=== PATIENT | female | born 1980 | race African-American/Black ===

== ENCOUNTER 2023-12-07 05:30 | Inpatient (IN) | payer OTHER, SELFPAY ==
[2023-12-07] VITALS (11 sets, daily range): BP systolic 105–144; BP diastolic 64–93; BMI 33.1
[2023-12-07 02:28] LABS: % Basophils 0.1 % (0-2); % Eosinophils 0.8 % (0-6); % Immature Granulocytes 0.3 % (0-0.5); % Lymphocytes 20.5 % (20.5-51.1); % Monocytes 3.9 % (1.7-9.3); % Neutrophils 74.4 % (42.2-75.2); Absolute Eosinophils 0.1 10^3/uL (0-0.7); Absolute Lymphocytes 1.6 10^3/uL (1.2-3.4); Absolute Monocytes 0.3 10^3/uL (0.1-0.6); Hematocrit 35.5 % (37.0-47.0); Hemoglobin 11.8 g/dL (12.0-16.0); Mean Corp Hgb Conc. 33.2 g/dL (33.0-37.0); Mean Corpuscular Hgb 29.6 pg (27.0-31.0); Nucleated Red Blood Cells % 0 %; Platelet Count 214 10^3/uL (130-400); Red Blood Cell Count 3.99 10^6/uL (4.20-5.40); Red Cell Dist. Width 13.2 % (11.5-14.5)
[2023-12-07] MEDS: ZOFRAN 4 MG IV (02:29)
[2023-12-07] MEDS: TYLENOL 650 MG PO ×4 (02:30→20:37)
[2023-12-07] MEDS: MORPHINE SULFATE 4 MG IV (02:30)
[2023-12-07 02:41] LABS: Lactic Acid 4.2 mmol/L (0.7-2.0)
[2023-12-07 02:47] LABS: ALT (SGPT) 22 U/L (0-35); AST (SGOT) 28 U/L (14-36); Albumin 4.2 g/dl (3.5-5.0); Alkaline Phosphatase 71 U/L (38-126); Blood Urea Nitrogen 11 mg/dl (7-17); Calcium 9.4 mg/dl (8.4-10.2); Carbon Dioxide 27 mmol/L (22-30); Chloride 100 mmol/L (98-107); Glucose 96 mg/dl (70-99); Sodium 137 mmol/L (135-145); Total Bilirubin 0.7 mg/dl (0.2-1.3); eGFR > 60.00
--- NOTE | 2023-12-07 02:50 | ED.GENMED ---
History of Present Illness
General
Chief Complaint: Abdominal Symptoms
Source: patient
Exam Limitations: none
Time Seen by Provider: 12/07/23 02:41
Nursing documentation reviewed up to this point in time: agreed with
History of Present Illness
History of Present Illness:
43-year-old female presents with severe abdominal pain with nausea, chills and generalized pain. Patient is being treated at [facility] for metastatic breast cancer. She reports that this cancer is spread to her bones. Patient denies
any other medical problems. Reports no other complaints at this time.
Vital signs are stable. Patient not hypoxic
Nursing note reviewed. I agree with nursing documentation up to this point in time.
Home Meds and allergies reviewed.
NUMBER AND COMPLEXITY OF PROBLEMS ADDRESSED AT THE ENCOUNTER
� Chronic conditions affecting care: Metastatic breast cancer
� Acute Exacerbation and/or Progression of Chronic Illness:
� Differential Diagnosis includes: Small bowel obstruction, metastases to the spine, ileus
AMOUNT AND/OR COMPLEXITY OF DATA TO BE REVIEWED AND ANALYZED
I performed an independent evaluation of the following and my interpretation is:
EKG:
CT:
X-rays:
Ultrasound:
Laboratory Studies:
Other:
Review of other/old records: No old records in the charting.
Clinical information was obtained by an independent historian:
Prescriptions/Medications Considered but not given:
Further testing considered but not performed:
RISK OF COMPLICATIONS AND/OR MORBIDITY OR MORTALITY OF PATIENT MANAGEMENT
Social determinants of health affecting care: Good Social Support
Discussion with other providers:
Escalation of care including admission/observation vs risk of discharge considered:
CRITICAL CARE NOTE:
Total Time (exclusive of procedures):
Update:
Phy Exam
General Physical Exam
General Presentation: moderate distress
General Skin: warm and dry
General Habitus: normal
General Mental: anxious and tearful
General Hydration: appears well hydrated
ENT Exam
ENT Exam: EOMI, pharynx normal, neck supple and normocephalic
Eye Exam
Eye Exam: PERRL, cornea clear and conjunctiva normal
Cardiovascular Exam
Cardiovascular Exam: regular rate/rhythm, no edema, no murmur and normal peripheral pulses
Pulmonary Exam
Pulmonary Exam: lungs clear, no respiratory distress, no rales, no crackles, no rhonchi, no stridor, no wheezing and no cough
Gastrointestinal Exam
Gastrointestinal Exam: soft, no organomegaly, no pulsatile mass, abnormal bowel sounds, distended and guarding
Neurological Exam
Neurological Exam: alert, oriented x3, no motor deficits and speech normal
Musculoskeletal Exam
Musculoskeletal Exam: full ROM and no edema
Skin Exam
Skin Exam: normal color, warm/dry, no rash and no petechia
Psychiatric Exam
Psychiatric Exam: normal mood/affect
Course
Orders/Labs/Results
Orders:
Orders
12/07/23 02:15
Electrocardiogram (*1) Urgent
Reason for Study: Other
Other Reason for Exam: Possible Sepsis
Cardiac Monitoring- Treatment ONCE
IV Insert/Care/Rem.- Treatment PRN
O2 Therapy [RESP] Urgent
Titrate/Wean O2 to maintain O2 sat greater than (%): 93
Special Instructions: TO MAINTAIN CONTINUOUS O2 SATS > OR = 93%
Pulse Ox/cont/shift [RESP] Urgent
Quantity: 1
Special Instructions: CONTINUOUS
12/07/23 02:20
Complete Blood Count/With Diff Urgent
Comprehensive Metabolic Panel Urgent
Lactic Acid Q4H
Comment: ON ICE, CANCEL 2ND ORDER IF FIRST LACTIC ACID LEVEL <2
12/07/23 02:22
Acetaminophen [Tylenol] 650 mg PO NOW STA
Morphine Sulfate 4 mg IV NOW STA
Ondansetron Injectable [Zofran] 4 mg IV NOW STA
12/07/23 02:49
CT Abd/pelvis W Iv Cont Urgent
Comment:
Reason For Exam: Nausea, severe abd pain
12/07/23 02:50
HYDROmorphone [Dilaudid] 1 mg IV NOW STA
12/07/23 03:27
Urinalysis Reflex To Culture Urgent
Date Specimen was Collected: 12/07/23
Time Specimen was Collected: 03:59
12/07/23 04:20
0.9% Sodium Chloride 1000 ml [Nss] 1,000 ml IV BOLUS
12/07/23 04:31
Blood Culture Routine
RAFAEL Source: Blood/Venous
Specimen Description:
12/07/23 04:32
COVID-19 Antigen Routine
Source: Nasal Swab
12/07/23 06:15
Lactic Acid Q4H
Comment: ON ICE, CANCEL 2ND ORDER IF FIRST LACTIC ACID LEVEL <2
Abnormal Lab Results
12/07/23
02:20
RBC 3.99 L 10^6/uL
(4.20-5.40)
Hgb 11.8 L g/dL
(12.0-16.0)
Hct 35.5 L %
(37.0-47.0)
Lactic Acid 4.2 H* mmol/L
(0.7-2.0)
12/07/23 02:20
12/07/23 02:20
Vital Signs
Initial and Last Documented VS:
Initial Vital Signs
Pulse Resp Pulse Ox
102 10 96
12/07/23 02:14 12/07/23 02:14 12/07/23 02:14
Last Documented Vital Signs
Temp Pulse Resp BP Pulse Ox
99.0 F 105 20 121/93 95
12/07/23 04:29 12/07/23 04:00 12/07/23 04:00 12/07/23 04:00 12/07/23 04:00
*Critical Care Note
Total Time (30-74mins, 75-104mins- exclusive of procedures): Not Applicable
Update Note
Update Note:
CT ABDOMEN AND PELVIS with IV contrast
IMPRESSION:
Comparison: None sent.
Moderate stool burden. Correlate with any history of constipation.
No bowel obstruction or bowel wall thickening. Normal appendix.
Unremarkable gallbladder, pancreas, and kidneys.
Lytic lesions involving the left posterior eighth rib most compatible with metastatic disease.
Indeterminate 1.4 x 0.9 cm cyst in the uncinate process. Recommend correlation with outside priors and attention on follow-up.
Hysterectomy.
Scarring in the abdominal wall.
ED Attending Note
-
Portions of this chart may have been created with voice recognition software.� Occasional wrong word or��sound alike� substitutions may have occurred due to the inherent limitations of voice recognition software.
Discharge Plan
Departure
Patient Disposition: Admit
Date of Disposition: 12/07/23
Time of Disposition: 04:13
Admit to: Med/Surg
Presentation/result/management discussed w/ accepting MD/DO: Hospitalist
Condition: Good
Discharge Problem:
Intractable abdominal pain
Interventions
Interventions:
*Risk Screen - Suicide Last Done: 12/07/23 02:16
*General Assessment Last Done: 12/07/23 02:16
*Neglect/Abuse Screening Last Done: 12/07/23 02:16
ED- Fall Risk Assessment Last Done: 12/07/23 02:48
*ED COVID-19 Vaccine History Last Done: 12/07/23 02:16
SY-Obmpcn-Zeczvmlbdg Assessment Last Done: 12/07/23 02:48
Discharge Date and Time
Print Language: LIBERIAN
[2023-12-07] MEDS: DILAUDID 1 MG IV (02:51)
--- NOTE | 2023-12-07 03:30 | EDRN ---
2nd pain medication helped patient much better with controlling the abdominal pain she is experiencing, will continue to monitor
[2023-12-07] MEDS: NSS 1000 IV ×4 (04:24→17:38)
--- NOTE | 2023-12-07 04:34 | HPS.HSE ---
Family Physician
-
Family Physician: * NONE
Chief Complaint
-
chills, abdominal pain and nausea.
History of Present Illness
43F HX Metastatic Breast CA with lytic bone lesions seen at ER evaluation of chills, abdominal pain and nausea.
Patient is being treated at [facility] for metastatic breast cancer since 2019
S/P b/l mastectomy
S/P Immuno Tx yesterday
HX Constipation
- last BM 1 week ago
@ ER noted
Fever > 100.9
HR > 90
RR > 20
Marginally hypoxic
Medical History
Past Medical History
Past Medical History: Reports Cancer (HX Metastatic Breast CA with lytic bone lesions)
Past Surgical History: Reports Other (hysterectomy )
Social History
Tobacco: Non-smoker
Alcohol: None
Family History
Family History: Not pertinent
Allergies / Home Medications
Allergies reflects when Allergies were last updated in [employer].
Home Medications with original date entered in [employer]
Allergy/Medication List:
Allergies
Allergy/AdvReac Type Severity Reaction Status Date / Time
No Known Allergies Allergy Unverified 12/07/23 02:20
If medication reconciliation has not been performed, why?: Medication List N/A (Not avilable yet )
Review of Systems
-
Constitutional: Reports Fever and Chills
EENT: Reports No Symptoms
Respiratory: Reports No Symptoms
Cardiac: Reports No Symptoms
Abdomen/GI: Reports Abdominal Pain and Nausea
: Reports No Symptoms
Musculoskeletal: Reports No Symptoms
Skin: Reports No Symptoms
Neurological: Reports No Symptoms
Endocrine: Reports No Symptoms
Hematologic/Lymphatic: Reports No Symptoms
Psych: Reports No Symptoms
Physical Exam
Vital Signs
Vital Signs
Temp Pulse Resp BP Pulse Ox
99.0 F 105 20 121/93 95
12/07/23 04:29 12/07/23 04:00 12/07/23 04:00 12/07/23 04:00 12/07/23 04:00
Physical Exam
General: Well Developed, Well Nourished and No Apparent Distress
HEENT: NormoCephalic, Moist mucous membranes and Atraumatic
Respiratory: Clear
Cardiac: S1/S2 and Regular Rhythm; No Murmur or Rub
Breast: Other (b/l mastectomy )
GI: Soft, Non Tender, Non Distended and Normal Bowel Sounds; No Organomegaly
Rectal: Deferred by Provider
Musculoskeletal: No Clubbing, No Cyanosis and No Edema
Skin: No Rash
Neuro: Nonfocal/grossly intact
Psych: Calm and Intact Judgment/Insight; No Confused
Laboratory Results
-
12/07/23 02:20
12/07/23 02:20
Laboratory Results
Lactic Acid 4.2 mmol/L (0.7-2.0) H* 12/07/23 02:20
Total Bilirubin 0.7 mg/dl (0.2-1.3) 12/07/23 02:20
AST 28 U/L (14-36) 12/07/23 02:20
ALT 22 U/L (0-35) 12/07/23 02:20
Alkaline Phosphatase 71 U/L (38-126) 12/07/23 02:20
Data Reviewed
-
CT Scan: Report Reviewed by me
Lab Data: Labs Reviewed by me
Impression/Plan
-
Reviewed VS: T101.4 HR 105 BP 120/93 RR 20 -25 POx low 90s
Data
nl WCC
Hgb 11.8
nl CMP
Pending UA
CT AP w IV Contr
Moderate stool burden
No BWO
Nl Appdx
Unremarkable GB, pancreas and Kidney
Lytic lesions in Lt post 8th rib
NO PRIOR hospitalist admission:
ASSESSMENT & PLAN
Pending Rx reconciliation
SIRS picture of uncertain origin DDX related to Immuno therapy
- Hemodynamically stable
- check PCT for sepsis
- f/u final CXR report
- Pending UA
- BCx
- Hold of ABx for now
- ID consult
Abdominal pain likely due to constipation with moderate stool burden
last BM was yesterday
NEG CT for BWO
- BW regime
Metastatic Breast CA
Lytic lesion at Lt post 8th rib
Patient is being treated at [facility] for metastatic breast cancer since 2019
S/P b/l mastectomy
S/P Immuno Tx yesterday
- follow with [facility]
- Onco consult
DVT Px: LMWH
Code: Full code
IP TLM
[2023-12-07 04:50] LABS: COVID-19 Antigen Negative (Negative)
--- NOTE | 2023-12-07 04:51 | EDRN ---
Dr. Cobb at bedside working on admission.
--- NOTE | 2023-12-07 05:00 | EDRN ---
Patient provided with apple juice, call gonzáles in reach.
--- NOTE | 2023-12-07 06:24 | PTCARENOTE ---
Pt transferred from ED. Pt ambulated into room with assistance. Pt AAOX3, able to make needs known, VSS. Will continue with current plan.
[2023-12-07 07:11] LABS: Lactic Acid 3.1 mmol/L (0.7-2.0)
[2023-12-07] MEDS: SENOKOT 8.6 MG PO ×2 (07:58→20:37)
[2023-12-07] MEDS: COLACE 100 MG PO ×2 (07:58→20:37)
--- NOTE | 2023-12-07 07:59 | CON.ONC ---
Impression
Impression
Abdominal pain
Metastatic breast cancer
Plan
Plan
Despite H&P, patient is not on immunotherapy.
She is receiving fulvestrant (hormonal therapy) as well as Zometa (bisphosphonate) and Ribociclib (CDK 4/6) both of which started 2 days ago.
Both (actually all 3) are unlikely to be the culprit and causing her symptoms.
CT scan negative for any clear-cut evidence of intra-abdominal pathology. At this point, constipation seems to be the most likely cause.
CBC reveals no leukocytosis.
No need to administer Ribociclib inpatient. She can resume post discharge.
Follow-up with Dr. Diaz Mir although she has expressed some interest in [facility]. We would be happy to accept her in transfer depending on her wishes
Patient History
History of Present Illness
CC: Abdominal pain
Oncology consult: History of metastatic breast cancer on treatment
HPI: Patient is a 43-year-old female with metastatic breast cancer with known bone metastasis follows with [facility]. She has history of noncompliance. She recently was started on fulvestrant around 5 weeks ago. In addition,
she is being treated with Zometa + Ribociclib both of which started yesterday. She presented to emergency room (currently lives in a local homeless snf) with abdominal pain associated with nausea. CT scan of the abdomen/pelvis revealed no
evidence of acute abdominal pathology other than moderate fecal material throughout the colon and known sites of lytic left eighth and 10th rib metastasis.
Past-Medical/Surgical History
PMH: Metastatic breast cancer
PSH: Bilateral mastectomies 2018
TSH/BSO 2018
SH:Denies tobacco/alcohol. Resides at a local homeless snf
Patient Medication
Active Medications
Generic Name Dose Route Start Last Admin
Trade Name Freq PRN Reason Stop Dose Admin
Acetaminophen 650 mg 12/07/23 05:52
Acetaminophen 325 Mg Tablet PO 01/04/24 05:51
Q4HPRN PRN
mild pain/ADAMS/temp> 100.4F
Bisacodyl 10 mg 12/07/23 05:52
Bisacodyl 10 Mg Rectal Suppository RECTAL 01/04/24 05:51
[id number] PRN
constipation
Docusate Sodium 100 mg 12/07/23 08:00
Docusate Sodium 100 Mg Capsule PO 01/04/24 07:59
BID FOREIGN
Enoxaparin Sodium 40 mg 12/07/23 18:00
Enoxaparin Sodium 40 Mg/0.4 Ml Syringe SC 01/04/24 17:59
QPM FOREIGN
Hydromorphone HCl 0.5 mg 12/07/23 05:52
Hydromorphone 0.5 Mg/0.5 Ml Syringe IV 12/21/23 05:51
Q4HPRN PRN
severe pain
Sodium Chloride 1,000 mls @ 80 mls/hr 12/07/23 05:52 12/07/23 06:17
Nss IV 1,000 mls
.[id number] FOREIGN Administration
Ondansetron HCl 4 mg 12/07/23 05:52
Ondansetron 4 Mg/2 Ml Vial IV 01/04/24 05:51
Q6HPRN PRN
nausea and vomiting
Polyethylene Glycol 17 grams 12/07/23 05:52
Polyethylene Glycol Powder 17 Grams Packet PO 01/04/24 05:51
DAILYPRN PRN
constipation
Senna/Docusate Sodium 1 tablet 12/07/23 05:52
Docusate W/Senna (Cecilia-Colace) Tablet PO 01/04/24 05:51
BIDPRN PRN
constipation
Sennosides 8.6 mg 12/07/23 08:00
Sennosides (Senokot) 8.6 Mg Tablet PO 01/04/24 07:59
BID FOREIGN
Physical Exam
-
General: Well Developed, Well Nourished and No Apparent Distress
HEENT: Negative Jaundice
Cardiology: Normal Sinus Rhythm, S1 and S2
Pulmonary: Clear
GI: Soft and Normal Bowel Sounds; Negative Distended
Extremities: No C/C/E
Neurology: Non Focal
Psych: Calm
Labs
Lab Results
WBC 8.0 10^3/uL (4.8-10.8) 12/07/23 02:20
RBC 3.99 10^6/uL (4.20-5.40) L 12/07/23 02:20
Hgb 11.8 g/dL (12.0-16.0) L 12/07/23 02:20
Hct 35.5 % (37.0-47.0) L 12/07/23 02:20
MCV 89.0 fL (81.0-99.0) 12/07/23 02:20
MCH 29.6 pg (27.0-31.0) 12/07/23 02:20
MCHC 33.2 g/dL (33.0-37.0) 12/07/23 02:20
RDW 13.2 % (11.5-14.5) 12/07/23 02:20
Plt Count 214 10^3/uL (130-400) 12/07/23 02:20
MPV 10.0 fL (7.4-10.4) 12/07/23 02:20
Abs Immat Gran (auto) 0.0 10^3/uL (0-0.05) 12/07/23 02:20
Absolute Neuts (auto) 6.0 10^3/uL (1.4-6.5) 12/07/23 02:20
Absolute Lymphs (auto) 1.6 10^3/uL (1.2-3.4) 12/07/23 02:20
Absolute Monos (auto) 0.3 10^3/uL (0.1-0.6) 12/07/23 02:20
Absolute Eos (auto) 0.1 10^3/uL (0-0.7) 12/07/23 02:20
Absolute Basos (auto) 0.0 10^3/uL (0-0.2) 12/07/23 02:20
Immature Gran % 0.3 % (0-0.5) 12/07/23 02:20
Neutrophils % 74.4 % (42.2-75.2) 12/07/23 02:20
Lymphocytes % 20.5 % (20.5-51.1) 12/07/23 02:20
Monocytes % 3.9 % (1.7-9.3) 12/07/23 02:20
Eosinophils % 0.8 % (0-6) 12/07/23 02:20
Basophils % 0.1 % (0-2) 12/07/23 02:20
Creatinine 0.8 mg/dL (0.6-1.0) 12/07/23 02:20
Vital Signs
Vital Signs
Temp Pulse Resp BP Pulse Ox
98.5 F 104 18 123/84 97
12/07/23 06:11 12/07/23 06:11 12/07/23 06:11 12/07/23 06:11 12/07/23 06:11
--- NOTE | 2023-12-07 12:44 | W.PN.HOSP.TC ---
Today's Communication/Plan
-
see plan
Assessment / Plan
Assessment / Plan
ASSESSMENT & PLAN
CT A/P
IMPRESSION: No acute pathology of the abdomen or pelvis identified.
Lytic and heterogeneous expansile lesions of the left eighth and 10th ribs consistent with known osseous metastatic disease.
Hepatic fatty infiltration.
Cystic pancreatic mass. Likely benign. Malignancy not excluded. Nonurgent MRI examination recommended.
Moderate fecal material throughout the colon.
Postsurgical change of the anterior abdominal wall. Similar findings of the left lower chest which may be postsurgical change or postradiation change. Clinical correlation recommended
A preliminary report was provided by [facility]
SIRS picture of uncertain origin
- Hemodynamically stable
- abdomen CT without acute pathology, UA clear; no chest symptoms
-may be related to cancer/ drug related?
-hold antibiotics
-F/U procal
Elevated lactate
-receiving IVF
-monitor
Abdominal pain likely due to constipation with moderate stool burden
last BM was yesterday
-CT without acute pathology
-enema now
-IVF
-clearliquid diet
Metastatic Breast CA
Lytic lesion at Lt post 8th rib
Patient is being treated at [facility] for metastatic breast cancer since 2019
S/P b/l mastectomy
-Oncology consult appreciated, patient is not receiving Immunotherapy per Dr. Lin
'She is receiving fulvestrant (hormonal therapy) as well as Zometa (bisphosphonate) and Ribociclib (CDK 4/6) both of which started 2 days ago.
Both (actually all 3) are unlikely to be the culprit and causing her symptoms.'
DVT Px: LMWH
Code: Full code
IP TLM
Anticipated Discharge: 24 - 48 hours
Subjective/Interval History
-
Date of Service: December 07, 2023
continues to have lower abdominal pain
no fevers since admit
no cough or congestion
Objective Data
-
Labs:
Laboratory Results
12/07/23
02:20
WBC 8.0
Hgb 11.8 L
Hct 35.5 L
Plt Count 214
Sodium 137
Potassium 4.0
Chloride 100
Carbon Dioxide 27
BUN 11
Creatinine 0.8
Glucose 96
Calcium 9.4
Total Bilirubin 0.7
AST 28
ALT 22
Alkaline Phosphatase 71
Vital Signs:
Vital Signs
Temp Pulse Resp BP Pulse Ox
98.6 F 98 16 124/74 99
12/07/23 11:35 12/07/23 11:35 12/07/23 11:35 12/07/23 11:35 12/07/23 11:35
Review of Systems
-
History Source: Patient
All other systems: Reviewed and negative
Physical Exam
-
General: No Apparent Distress
HEENT: PERRLA
Respiratory: Clear to Auscultation; Negative Wheezes
Cardiac: Regular Rhythm and S1/S2
GI: Other (tenderness LLQ, no rebound or guarding)
Musculoskeletal: No Edema
Skin: Warm and Dry; Negative Rash
Neuro: AO x 3
Psych: Calm
Data Reviewed
-
Diagnostic Radiology: Report Reviewed by me
Labs: Labs Reviewed by me
[2023-12-07 12:48] LABS: Urine Albumin Negative (Neg - Trace); Urine Bilirubin Negative (Negative); Urine Character Clear (Clear); Urine Color Yellow; Urine Glucose Negative (Negative); Urine Ketone Negative (Negative); Urine Leukocyte Trace (Negative); Urine Nitrite Negative (Negative); Urine Occult Blood Trace (Negative); Urine Urobilinogen Negative (Neg - 1+)
[2023-12-07 13:28] LABS: Urine Amorphous Seen; Urine Red Blood Cell 0-2 /HPF (0-2); Urine White Cell 0-2 /HPF (0-5)
--- NOTE | 2023-12-07 13:33 | CON.ID ---
Consultation
-
Date/Time Consultation Requested: 12/07/23 5:52
Date/Time Consultation Performed: 12/07/23 13:33
Requesting Provider: Dr Cobb
Performing Provider: Dr Christiansen
Reason for Consultation: SIRS picture of uncertain origin : acute infection vs tumor fever
Chief Complaint / Past History
Chief Complaint
chills, abdominal pain and nausea.
History of Present Illness
Ms Feldman is a 43 year old female with known metastatic breast cancer with known bone metastasis (started fulvestrant ~5 weeks ago, also Zometa + Ribociclib both of which started yesterday, h/o b/l mastectomy, history of noncompliance). She is
currently unhoused and [facility]. She presented to emergency room with abdominal pain and nausea. Reports the pain is over a lump where she previous had a repair of a diastasis recti. Denies: headaches, sinus tenderness, sore
throat, cough, sputum production, nausea, vomiting, diarrhea, dysuria, new rashes, new joint pains. Reports last BM was 1 week ago.
Since arrival here single fever of 101.4, bp stable, initial HRs low 100s, rr initially 20s now teens, WBC 8.0, hgb 11.8, plt 214, no L shift, eos are present, cr 0.8, lactic acid 4.2 then 3.1 a repeat is ordered, procalcitonin was sent, ua no
pyuria, covid ag neg, CT a/p with IV contrast: metastatic rib lesions, constipation, currently on a bowel regimen and no antibiotics.
Past History
Additional Past Medical History:
no other known history
Additional Past Surgical History:
hysterectomy
Allergy History:
No Known Allergies Allergy (Unverified 12/07/23 02:20)
Medications Reviewed: Yes
Social History
Tobacco: Non-Smoker
Alcohol: None
Family History
Family History: Not Pertinent
Review of Systems
Review of Systems
General: Fever
All systems: All other systems were reviewed and were negative
Vital Signs
Temp Pulse Resp BP Pulse Ox
98.6 F 98 16 124/74 99
12/07/23 11:35 12/07/23 11:35 12/07/23 11:35 12/07/23 11:35 12/07/23 11:35
Physical Exam
Physical Exam
Constitutional: No Acute Distress
Cardiovascular: Regular Rate and S1/S2; Negative Murmur or Rub
Pulmonary: Clear and Symmetric; Negative Wheezes, Rales or Rhonchi
Gastrointestinal: Soft, Non Tender, Non Distended and Normal Bowel Sounds
Skin: Warm and Dry; Negative Rash or Jaundice
Lab / Diagnostic Study Results
12/07/23 02:20
12/07/23 02:20
Abs Immat Gran (auto) 0.0 10^3/uL (0-0.05) 12/07/23 02:20
Absolute Neuts (auto) 6.0 10^3/uL (1.4-6.5) 12/07/23 02:20
Absolute Lymphs (auto) 1.6 10^3/uL (1.2-3.4) 12/07/23 02:20
Absolute Monos (auto) 0.3 10^3/uL (0.1-0.6) 12/07/23 02:20
Absolute Basos (auto) 0.0 10^3/uL (0-0.2) 12/07/23 02:20
Immature Gran % 0.3 % (0-0.5) 12/07/23 02:20
Neutrophils % 74.4 % (42.2-75.2) 12/07/23 02:20
Lymphocytes % 20.5 % (20.5-51.1) 12/07/23 02:20
Monocytes % 3.9 % (1.7-9.3) 12/07/23 02:20
Eosinophils % 0.8 % (0-6) 12/07/23 02:20
Basophils % 0.1 % (0-2) 12/07/23 02:20
Lactic Acid 3.1 mmol/L (0.7-2.0) H 12/07/23 06:48
Ur Squamous Epith Cells 11-15 /LPF (Few) 12/07/23 12:16
Microbiology Results
Micro:
12/07/23 06:48 Blood Culture - Pending
Blood/Venous
Assessment / Plan
Fever
- no focal infectious symptoms - possibly drug fever or tumor fever
- the tenderness over the previous diastasis recti surigcal repair without dehsicence, swelling or fluctuance, no concerning findings on CT; also note fulvestrant and ribociclib are associated with abdominal pain on up to date, agree that
constipation is also a possible cause
- agree with bowel regimen - will confirm patient has bowel movement
- would not recommend antibiotics at this time
- follow up with oncology
Likely Type B Lactic acidosis
- patients blood pressure has been normal throughout this stay, I am unclear as to why a lactic acid was initially sent - she is not in shock.
- occasionally tumors themselves can cause a type B metabolic acidosis; medications can also be a cause, I do not see it listed as a common drug reaction with her stated therapies
Care Review
Plan reviewed with: Physician (Dr Hamilton - antibiotics)
--- NOTE | 2023-12-07 13:46 | CM ---
Patient seen bedside, initial assessment completed. Patient is currently homeless, has been residing at the [facility] for about three months. Patient denies having any family or friends as supports. Patient denies VN or SNF, has a cane for
ambulation. Patient PCP through [facility], pharmacy [facility] in [place], patient confirms prescription coverage. CM will continue to follow for all discharge planning needs.
Plan; return to [facility] when stable.
[2023-12-07 14:03] LABS: Lactic Acid 4.2 mmol/L (0.7-2.0)
[2023-12-07] MEDS: DULCOLAX 10 MG RECTAL (16:07)
[2023-12-07] MEDS: LOVENOX 40 MG SC (17:39)
[2023-12-07] MEDS: MIRALAX 17 GRAMS PO (20:37)
[2023-12-07 21:16] LABS: Lactic Acid 4.6 mmol/L (0.7-2.0)
[2023-12-08] MEDS: TYLENOL 650 MG PO ×3 (01:12→19:42)
[2023-12-08 01:49] LABS: Lactic Acid 1.3 mmol/L (0.7-2.0)
[2023-12-08 03:15] VITALS: BP 142/95
[2023-12-08 06:00] VITALS: BMI 32.5
[2023-12-08 07:00] VITALS: BP 133/84
[2023-12-08 07:24] LABS: Hematocrit 33.6 % (37.0-47.0); Hemoglobin 11.7 g/dL (12.0-16.0); Mean Corp Hgb Conc. 34.8 g/dL (33.0-37.0); Mean Corpuscular Hgb 30.9 pg (27.0-31.0); Mean Corpuscular Volume 88.7 fL (81.0-99.0); Mean Platelet Volume 9.7 fL (7.4-10.4); Platelet Count 152 10^3/uL (130-400); Red Blood Cell Count 3.79 10^6/uL (4.20-5.40); Red Cell Dist. Width 13.2 % (11.5-14.5); White Blood Cell Count 3.2 10^3/uL (4.8-10.8)
[2023-12-08] MEDS: MIRALAX 17 GRAMS PO ×2 (07:38→19:38)
[2023-12-08] MEDS: SENOKOT 8.6 MG PO ×2 (07:38→19:40)
[2023-12-08] MEDS: COLACE 100 MG PO ×2 (07:38→19:40)
[2023-12-08] MEDS: NSS 1000 IV (07:38)
[2023-12-08 08:00] LABS: Blood Urea Nitrogen 5 mg/dl (7-17); Calcium 8.7 mg/dl (8.4-10.2); Carbon Dioxide 24 mmol/L (22-30); Chloride 104 mmol/L (98-107); Estimated Creatinine Clearance 91 ml/min; Glucose 109 mg/dl (70-99); Potassium 3.8 mmol/L (3.5-5.1); Sodium 136 mmol/L (135-145); eGFR > 60.00
[2023-12-08 11:00] VITALS: BP 129/78
--- NOTE | 2023-12-08 11:14 | CM ---
Addendum entered by Radha Posey 12/08/23 16:08:
CM placed call to patients housing workers (Ankush Marquez [phone]) and Arun ([phone]). CM left voicemails for both workers requesting return call.
Addendum entered by Radha Posey 12/08/23 15:10:
CM placed another call to [employer] ([phone]), left another VM requesting to speak to Bonnie Marquez.
Original Note:
Patient seen bedside, patient reports the jail she currently resides ([address]) is threatening to kick her out, patient requesting CM call her housing worker, Bonnie Marquez. Patient unsure of number to contact as her phone is .
Patient giving CM to attempt to call [employer]. CM placed call to [employer] [facility] ([phone]), left voicemail requesting return call. CM will continue to follow for all discharge planning needs.
Plan; return to jail, awaiting return call from housing worker.
--- NOTE | 2023-12-08 11:48 | W.PN.ID1 ---
Date of Service
Date of Service: December 08, 2023
Today's Communication
- would not recommend antibiotics at this time
- follow up with oncology, stable for dc from ID perspective
Assessment / Plan
Fever
- no focal infectious symptoms - possibly drug fever or tumor fever
- the tenderness over the previous diastasis recti surigcal repair without dehiscence, swelling or fluctuance, no concerning findings on CT; also note fulvestrant and ribociclib are associated with abdominal pain on up to date, agree that
constipation is also a possible cause
- agree with bowel regimen - management per IM service
- would not recommend antibiotics at this time
- follow up with oncology, stable for dc from ID perspective
Lactic acidosis
- resolved
Chief Complaint
-: Fever
Subjective / Review of Systems
fever curve improved
bp stable
asks is she has meningitis - no headache, no stiff neck, no photophobia - does not have meningitis
Vital Signs / Physical Exam
Vital Signs
Vital Signs
Temp Pulse Resp BP Pulse Ox
100.3 F 91 18 133/84 97
12/08/23 07:00 12/08/23 07:00 12/08/23 07:00 12/08/23 07:00 12/08/23 07:35
Physical Exam
Constitutional: No Acute Distress and Chronically Ill
Cardiovascular: Regular Rate and S1/S2; Negative Murmur or Rub
Pulmonary: Clear and Symmetric; Negative Wheezes or Rales
Gastrointestinal: Soft, Tender (over the diastasis recti repair), Non Distended and Normal Bowel Sounds
Skin: Warm and Dry; Negative Rash or Jaundice
Neurological: Awake
Objective Data
Lab Data
Lab Results
12/08/23 07:06
12/08/23 07:06
Estimated Creat Clear 91 ml/min 12/08/23 07:06
Lactic Acid 1.0 mmol/L (0.7-2.0) 12/08/23 07:06
Total Bilirubin 0.7 mg/dl (0.2-1.3) 12/07/23 02:20
AST 28 U/L (14-36) 12/07/23 02:20
ALT 22 U/L (0-35) 12/07/23 02:20
Alkaline Phosphatase 71 U/L (38-126) 12/07/23 02:20
Most recent labs reviewed.
Micro Results:
12/07/23 06:48 Blood Culture - Preliminary
Blood/Venous No Growth in 24 hours- Final report to follow
Care Review
Plan reviewed with: Physician (Dr Hamilton - I dont think she has an infection)
--- NOTE | 2023-12-08 11:53 | W.PN.HOSP.TC ---
Today's Communication/Plan
-
treat constipation
Assessment / Plan
Assessment / Plan
ASSESSMENT & PLAN
CT A/P
IMPRESSION: No acute pathology of the abdomen or pelvis identified.
Lytic and heterogeneous expansile lesions of the left eighth and 10th ribs consistent with known osseous metastatic disease.
Hepatic fatty infiltration.
Cystic pancreatic mass. Likely benign. Malignancy not excluded. Nonurgent MRI examination recommended.
Moderate fecal material throughout the colon.
Postsurgical change of the anterior abdominal wall. Similar findings of the left lower chest which may be postsurgical change or postradiation change. Clinical correlation recommended
A preliminary report [facility] provided by [facility]
SIRS picture of uncertain origin
- Hemodynamically stable
- abdomen CT without acute pathology, UA clear; no chest symptoms
-may be related to cancer/ drug related?
-hold antibiotics
-appreciate ID
-afebrile past 24 hours
Elevated lactate
-receiving IVF
-resolved
Abdominal pain likely due to constipation with moderate stool burden
-CT without acute pathology
-repeat enema
-advance to fulls
Metastatic Breast CA
Lytic lesion at Lt post 8th rib
Patient is being treated at [facility] for metastatic breast cancer since 2018
S/P b/l mastectomy
-Oncology consult appreciated, patient is not receiving Immunotherapy per Dr. Lin
'She is receiving fulvestrant (hormonal therapy) as well as Zometa (bisphosphonate) and Ribociclib (CDK 4/6) both of which started 2 days ago.
Both (actually all 3) are unlikely to be the culprit and causing her symptoms.'
DVT Px: LMWH
Code: Full code
IP TLM
Anticipated Discharge: 24 - 48 hours
Subjective/Interval History
-
Date of Service: December 08, 2023
no fevers overnight
continues to have abdominal pain
Objective Data
-
Labs:
Laboratory Results
12/08/23
07:06
WBC 3.2 L
Hgb 11.7 L
Hct 33.6 L
Plt Count 152 D
Sodium 136
Potassium 3.8
Chloride 104
Carbon Dioxide 24
BUN 5 L
Creatinine 0.8
Glucose 109 H
Calcium 8.7
Vital Signs:
Vital Signs
Temp Pulse Resp BP Pulse Ox
100.3 F 91 18 133/84 97
12/08/23 07:00 12/08/23 07:00 12/08/23 07:00 12/08/23 07:00 12/08/23 07:35
I&O
12/07/23 12/08/23 12/09/23
06:59 06:59 06:59
Intake Total 950 / 950
Balance 950 / 950
Review of Systems
-
History Source: Patient
All other systems: Reviewed and negative
Physical Exam
-
General: No Apparent Distress
HEENT: PERRLA
Respiratory: Clear to Auscultation; Negative Wheezes
Cardiac: Regular Rhythm and S1/S2
GI: Other (tenderness LLQ, no rebound or guarding)
Musculoskeletal: No Edema
Skin: Warm and Dry; Negative Rash
Neuro: AO x 3
Psych: Calm
Data Reviewed
-
Diagnostic Radiology: Report Reviewed by me
Labs: Labs Reviewed by me
[2023-12-08 15:00] VITALS: BP 128/69
[2023-12-08] MEDS: LOVENOX 40 MG SC (16:00)
[2023-12-08] MEDS: DULCOLAX 10 MG RECTAL (16:00)
[2023-12-08 19:40] VITALS: BP 139/86
[2023-12-08 22:58] VITALS: BP 114/69
[2023-12-09 03:43] VITALS: BP 125/73
[2023-12-09] MEDS: TYLENOL 650 MG PO ×2 (05:52→23:41)
[2023-12-09 06:00] VITALS: BMI 32.5
[2023-12-09 07:00] VITALS: BP 134/84
[2023-12-09] MEDS: SENOKOT 8.6 MG PO ×2 (08:19→20:13)
[2023-12-09] MEDS: COLACE 100 MG PO ×2 (08:19→20:13)
[2023-12-09] MEDS: MIRALAX 17 GRAMS PO (08:19)
--- NOTE | 2023-12-09 08:53 | W.PN.ONC2 ---
Today's Communication / Plan
-
follow symptoms
no objection to discharge
I will arrange outpt follow-up with [facility] since currently residing in this area, however, she will need to continue care with her current medical oncologist until she establishes with a provider in our office
Impression
Impression
Abdominal pain
Metastatic breast cancer
Plan
Plan
Despite H&P, patient is not on immunotherapy.
She is receiving fulvestrant (hormonal therapy) as well as Zometa (bisphosphonate) and Ribociclib (CDK 4/6) both of which started this week. She had only taken 1 dose of ribociclib prior to admission
fulvestrant, Zometa, ribociclib unlikely etiology of her GI symptoms.
CT scan negative for any clear-cut evidence of intra-abdominal pathology. At this point, constipation seems to be the most likely cause.
CBC reveals no leukocytosis.
No need to administer Ribociclib inpatient. She can resume post discharge.
Follow-up with Dr. Diaz Mir although she has expressed some interest in following up with [facility]. We would be happy to accept her in transfer depending on her wishes
Subjective/Objective
Chief Complaint
nausea, constipation
Subjective
constipation persists
Vital Signs:
Vital Signs
Temp Pulse Resp BP Pulse Ox
98.4 F 78 18 134/84 96
12/09/23 07:00 12/09/23 07:00 12/09/23 07:00 12/09/23 07:00 12/09/23 07:00
Lab Results:
Laboratory Data
WBC 3.2 10^3/uL (4.8-10.8) L 12/08/23 07:06
Hgb 11.7 g/dL (12.0-16.0) L 12/08/23 07:06
Plt Count 152 10^3/uL (130-400) D 12/08/23 07:06
eGFR > 60.00 12/08/23 07:06
Physical Exam
General: Well Developed, Well Nourished and No Apparent Distress
HEENT: Negative Jaundice
Cardiology: Normal Sinus Rhythm, S1 and S2
Pulmonary: Clear
GI: Soft and Normal Bowel Sounds; Negative Distended
Extremities: No C/C/E
Neurology: Non Focal
Psych: Calm
Review of Systems
Review of Systems
Review of systems notable for subjective, otherwise negative
--- NOTE | 2023-12-09 09:10 | CM ---
Addendum entered by Radha Posey 12/09/23 12:28:
CM met with patient bedside, discussed CM spoke with Hazel, [facility]. Patient reports she has transportation home, is hopeful to go home today. CM will continue to follow for all discharge planning needs.
Plan; return to [facility], has transportation home.
Original Note:
CM spoke with patients housing group lining caser, Hazel ([phone]). Hazel confirmed patient can return to the penit[facility], there was never an issue with patient returning to the penitentiary and this has been explained to patient as well. Hazel reports
[facility]itentiary does not provide transportation, patient will need her own transportation home. Hazel inquiring if patients 8 year old son was visiting. CM will continue to follow for all discharge planning needs.
Plan; [facility] to [facility] when medically stable for discharge.
--- NOTE | 2023-12-09 10:44 | W.PN.HOSP.TC ---
Today's Communication/Plan
-
obs series
Assessment / Plan
Assessment / Plan
ASSESSMENT & PLAN
CT A/P
IMPRESSION: No acute pathology of the abdomen or pelvis identified.
Lytic and heterogeneous expansile lesions of the left eighth and 10th ribs consistent with known osseous metastatic disease.
Hepatic fatty infiltration.
Cystic pancreatic mass. Likely benign. Malignancy not excluded. Nonurgent MRI examination recommended.
Moderate fecal material throughout the colon.
Postsurgical change of the anterior abdominal wall. Similar findings of the left lower chest which may be postsurgical change or postradiation change. Clinical correlation recommended
A preliminary report was provided by [facility]
SIRS picture of uncertain origin
- Hemodynamically stable
- abdomen CT without acute pathology, UA clear; no chest symptoms
-may be related to cancer/ drug related? fever curve improving
-hold antibiotics
-appreciate ID
Elevated lactate
-receiving IVF
-resolved
Abdominal pain likely due to constipation with moderate stool burden
-CT without acute pathology
-will obtain obstruction series today patient describing nausea but also wants to go home
-if obstruction series nl will give mag citrate and hopefully DC later today
Metastatic Breast CA
Lytic lesion at Lt post 8th rib
Patient is being treated at [facility] for metastatic breast cancer since 2019
S/P b/l mastectomy
-Oncology consult appreciated, patient is not receiving Immunotherapy per Dr. Lin
'She is receiving fulvestrant (hormonal therapy) as well as Zometa (bisphosphonate) and Ribociclib (CDK 4/6) both of which started 2 days ago.
Both (actually all 3) are unlikely to be the culprit and causing her symptoms.'
DVT Px: LMWH
Code: Full code
IP TLM
Anticipated Discharge: Within 24 hours
Subjective/Interval History
-
Date of Service: December 09, 2023
lower abdominal pain and tenderness persists
mild nausea
but wants to go home later today
Objective Data
-
Vital Signs:
Vital Signs
Temp Pulse Resp BP Pulse Ox
98.4 F 78 18 134/84 96
12/09/23 07:00 12/09/23 07:00 12/09/23 07:00 12/09/23 07:00 12/09/23 07:00
I&O
12/08/23 12/09/23 12/10/23
06:59 06:59 06:59
Intake Total 950 / 950 1800 / 1800
Balance 950 / 950 1800 / 1800
Review of Systems
-
History Source: Patient
All other systems: Reviewed and negative
Physical Exam
-
General: No Apparent Distress
HEENT: PERRLA
Respiratory: Clear to Auscultation; Negative Wheezes
Cardiac: Regular Rhythm and S1/S2
GI: Other (tenderness left groin, no rebound or guarding)
Skin: Warm and Dry; Negative Rash
Neuro: AO x 3
Psych: Calm
Data Reviewed
-
Diagnostic Radiology: Report Reviewed by me
Labs: Labs Reviewed by me
[2023-12-09 11:00] VITALS: BP 123/78
[2023-12-09 12:03] LABS: Blood Urea Nitrogen 8 mg/dl (7-17); Calcium 9.2 mg/dl (8.4-10.2); Carbon Dioxide 28 mmol/L (22-30); Chloride 106 mmol/L (98-107); Estimated Creatinine Clearance 81 ml/min; Glucose 92 mg/dl (70-99); Potassium 3.9 mmol/L (3.5-5.1); Sodium 137 mmol/L (135-145); eGFR > 60.00
--- NOTE | 2023-12-09 13:56 | W.PN.ID1 ---
Date of Service
Date of Service: December 09, 2023
Today's Communication
stable for dc from ID perspective
Assessment / Plan
Fever
- no focal infectious symptoms - possibly drug fever or tumor fever
- the tenderness over the previous diastasis recti surigcal repair without dehiscence, swelling or fluctuance, no concerning findings on CT; also note fulvestrant and ribociclib are associated with abdominal pain on up to date, agree that
constipation is also a possible cause
- agree with bowel regimen - management per IM service
- would not recommend antibiotics at this time
- follow up with oncology, stable for dc from ID perspective
Lactic acidosis
- resolved
Chief Complaint
-: Fever
Subjective / Review of Systems
no further adrian fevers, tmax was 100.4
no complaints
Vital Signs / Physical Exam
Vital Signs
Vital Signs
Temp Pulse Resp BP Pulse Ox
98.1 F 73 18 123/78 99
12/09/23 11:00 12/09/23 11:00 12/09/23 11:00 12/09/23 11:00 12/09/23 11:00
Physical Exam
Constitutional: No Acute Distress
Cardiovascular: Regular Rate and S1/S2; Negative Murmur or Rub
Pulmonary: Clear and Symmetric; Negative Wheezes or Rales
Gastrointestinal: Soft, Non Tender, Non Distended and Normal Bowel Sounds
Skin: Warm and Dry; Negative Rash or Jaundice
Objective Data
Lab Data
Lab Results
12/08/23 07:06
12/09/23 11:09
Estimated Creat Clear 81 ml/min 12/09/23 11:09
Lactic Acid 1.0 mmol/L (0.7-2.0) 12/08/23 07:06
Total Bilirubin 0.7 mg/dl (0.2-1.3) 12/07/23 02:20
AST 28 U/L (14-36) 12/07/23 02:20
ALT 22 U/L (0-35) 12/07/23 02:20
Alkaline Phosphatase 71 U/L (38-126) 12/07/23 02:20
Most recent labs reviewed.
Micro Results:
12/07/23 06:48 Blood Culture - Preliminary
Blood/Venous No Growth in 48 hours- Final report to follow
[2023-12-09] MEDS: CITROMA 300 ML PO (14:14)
[2023-12-09 15:00] VITALS: BP 134/88
[2023-12-09] MEDS: LOVENOX SC (17:15)
[2023-12-09 19:41] VITALS: BP 139/92
[2023-12-09] MEDS: SENOKOT-S 1 TABLET PO (20:12)
[2023-12-09 23:25] VITALS: BP 115/72
[2023-12-09] MEDS: MELATONIN 5 MG PO (23:41)
[2023-12-09] MEDS: LOVENOX 40 MG SC (23:42)
[2023-12-10 03:39] VITALS: BP 101/60
[2023-12-10 06:00] VITALS: BMI 32.5
[2023-12-10] MEDS: TYLENOL 650 MG PO (06:13)
[2023-12-10 07:21] VITALS: BP 133/85
[2023-12-10] MEDS: MIRALAX 17 GRAMS PO (07:39)
[2023-12-10] MEDS: COLACE 100 MG PO (07:40)
[2023-12-10] MEDS: SENOKOT 8.6 MG PO (07:40)
--- NOTE | 2023-12-10 11:05 | W.PN.HOSP.TC ---
Today's Communication/Plan
-
OK for DC today
Assessment / Plan
Assessment / Plan
ASSESSMENT & PLAN
CT A/P
IMPRESSION: No acute pathology of the abdomen or pelvis identified.
Lytic and heterogeneous expansile lesions of the left eighth and 10th ribs consistent with known osseous metastatic disease.
Hepatic fatty infiltration.
Cystic pancreatic mass. Likely benign. Malignancy not excluded. Nonurgent MRI examination recommended.
Moderate fecal material throughout the colon.
Postsurgical change of the anterior abdominal wall. Similar findings of the left lower chest which may be postsurgical change or postradiation change. Clinical correlation recommended
A preliminary report was provided [facility]
SIRS picture of uncertain origin
- Hemodynamically stable
- abdomen CT without acute pathology, UA clear; no chest symptoms
-may be related to cancer/ drug related? she has now been afebrile x 48 hours
-hold antibiotics
-appreciate ID
Elevated lactate
-resolved
Abdominal pain likely due to constipation with moderate stool burden
-CT without acute pathology
-obs series negative
-s/p mag citrate with some liquid stool and relief of symptoms
-OK for DC and can continue home regimen
Metastatic Breast CA
Lytic lesion at Lt post 8th rib
Patient is being treated at [facility] for metastatic breast cancer since 2018
S/P b/l mastectomy
-Oncology consult appreciated, patient is not receiving Immunotherapy per Dr. Lin
'She is receiving fulvestrant (hormonal therapy) as well as Zometa (bisphosphonate) and Ribociclib (CDK 4/6) both of which started 2 days ago.
Both (actually all 3) are unlikely to be the culprit and causing her symptoms.'
DVT Px: LMWH
Code: Full code
IP TLM
Anticipated Discharge: Today
Subjective/Interval History
-
Date of Service: December 10, 2023
she had some liquid stool yesterday with some relief of pain
wants to go home
Objective Data
-
Vital Signs:
Vital Signs
Temp Pulse Resp BP Pulse Ox
99.2 F 81 18 133/85 97
12/10/23 03:39 12/10/23 07:21 12/10/23 07:21 12/10/23 07:21 12/10/23 09:27
I&O
12/09/23 12/10/23 12/11/23
06:59 06:59 06:59
Intake Total 1800 / 1800 1560 / 1560
Balance 1800 / 1800 1560 / 1560
Review of Systems
-
History Source: Patient
All other systems: Reviewed and negative
Physical Exam
-
General: No Apparent Distress
HEENT: PERRLA
Respiratory: Clear to Auscultation; Negative Wheezes
Cardiac: Regular Rhythm and S1/S2
GI: Soft and Nontender
Skin: Warm and Dry; Negative Rash
Neuro: AO x 3
Psych: Calm
Data Reviewed
-
Diagnostic Radiology: Report Reviewed by me
Labs: Labs Reviewed by me
--- NOTE | 2023-12-10 11:09 | W.DS.TRANS ---
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
-
Discharge Instructions:
Discharge Diagnosis/Procedures constipation, fevers
Diet Regular
Activity As tolerated
Driving Restrictions As prior to admission
Instructions:
Stand-Alone Forms:
Changes to Home Medications: No
Discharge Medications:
DC Medications w/original date entered in [facility]
Tums Anti-Gas/Antacid 500 mg PO DAILY GERD 12/07/23
ribociclib 600 mg/day (200 mg x 3) tablets (Kisqali) 600 mg PO DAILY 12/08/23
polyethylene glycol 3350 17 gram oral powder packet (HealthyLax) 17 g PO BID #30 ea 12/09/23
Home Medication Changes
Pending Results: No
[2023-12-10 11:36] VITALS: BP 121/78
[2023-12-10 12:16] VITALS: BP 126/85
--- NOTE | 2023-12-10 12:26 | CM ---
Met with patient at bedside; reported she has transport to the [facility]
Plan: discharge today; no needs; has transport
--- NOTE | 2023-12-10 13:57 | W.DCSUMMARY ---
Discharge Summary
Discharge Data
Date of Admission: 12/07/23
Date of Discharge: 12/10/23
-
Pending Results: No
Hospital Course
Discharging Physician : Dr. Veronika Hamilton
Disposition : Home
Principal Discharge diagnosis : Fevers may be secondary to malignancy or drug reaction, Constipation
Hospital Course :
Ms. Miladys Feldman is a 43 yo woman with hx metastatic breast cancer with lytic bone lesions (s/p bilateral mastectomy, receiving hormonal therapy, Zometa and Ribociclib, follows at [facility]) presents to the ER with constipation and
fever. Triage VS: P 102, BP 121/93, T up to 101.4. CT A/P without acute pathology, 'moderate fecal material.' She was admitted to medicine with ID and Oncology consulting.
From a fever standpoint, no focal infectious symptoms. Blood cultures negative. UA clear, no cough or congestion. She was observed off of antibiotics and fevers resolved. May be malignancy versus drug related. Patient will follow up with her
Oncologist.
Regarding abdominal pain and constipation. She was treated with an aggressive bowel regimen with slow response. She did have output with some relief of discomfort. She was tolerating a regular diet. Patient feels ready for discharge and will
continue treatment at home.
Time spent on discharge was 32 minutes.
Important imaging findings :
Abdomen/Pelvis CT 12/07/23
IMPRESSION: No acute pathology of the abdomen or pelvis identified.
Lytic and heterogeneous expansile lesions of the left eighth and 10th ribs consistent with known osseous metastatic disease.
Hepatic fatty infiltration.
Cystic pancreatic mass. Likely benign. Malignancy not excluded. Nonurgent MRI examination recommended.
Moderate fecal material throughout the colon.
Postsurgical change of the anterior abdominal wall. Similar findings of the left lower chest which may be postsurgical change or postradiation change. Clinical correlation recommended
A preliminary report was provided by [facility]
CXR 12/09/23
IMPRESSION:
1. No acute cardiopulmonary process.
2. Non-specific bowel gas pattern without signs of obstruction.
3. Mild to moderate diffuse colonic stool burden may reflect constipation.
Procedure findings :
Discharge Plan
-
Patient Disposition: Home (Routine Discharge)
Discharge Diagnosis/Procedures: constipation, fevers
Diet: Regular
Activity: As tolerated
Driving Restrictions: As prior to admission
Activity Restrictions/Additional Instructions:
You were referred to [facility]; in the meantime continue to follow up with your prior Oncologist. Please be seen within the next 1-2 weeks.
Referrals:
NONE,* [Family Provider] - in less than 1 week
Additional Discharge Medication Instructions: You may take Miralax 2-3x/day for constipation if necessary (then resume daily dosing).
Consider trying yaz or flax seeds to help. Over the counter magnesium may help as well.
Prescriptions:
New
polyethylene glycol 3350 [HealthyLax] 17 gram Powder In Packet
17 g PO BID Qty: 30 0RF
Continued
Tums Anti-Gas/Antacid
500 mg PO DAILY MDD 500mg
Kisqali 600 mg/day (200 mg x 3) Tablet
600 mg PO DAILY
Discharge Orders:
Discharge Patient (As Directed); Ordered 12/10/23
Ordered By: Veronika Hamilton
Discharge Date and Time
Discharge Date/Time: 12/10/23 12:35
Print Language: MAORI
== END 2023-12-10 12:35 | disposition home or self-care (01) | DRG 598 ==
LOC: 4 WEST ACU 05:30
PROVIDERS: Emergency Medicine; ADMITTING PHYSICIAN Internal Medicine; ATTENDING PHYSICIAN Student in an Organized Health Care Education/Training Program; CONSULT PHYSICIAN Student in an Organized Health Care Education/Training Program; EMERGENCY PHYSICIAN Student in an Organized Health Care Education/Training Program; OTHER PHYSICIAN Internal Medicine Hematology & Oncology
DX: C50.919 Malignant neoplasm of unspecified site of unspecified female breast (principal); C79.51 Secondary malignant neoplasm of bone; R65.10 Systemic inflammatory response syndrome (SIRS) of non-infectious origin without acute organ dysfunction; Z59.01 Sheltered homelessness; Z90.13 Acquired absence of bilateral breasts and nipples; K86.9 Disease of pancreas, unspecified; Z11.52 Encounter for screening for COVID-19
CPT/HCPCS: 74022; 74177; 80048; 80053; 81003; 81015; 83605; 83735; 84145; 85025; 85027; 87040; 87811; 93005; 96361; 96374; 96375; 99285; Q9967